=== PATIENT | male | born 1975 | race Caucasian/White ===

== ENCOUNTER → 2021-01-15 | Outpatient (CLI) | payer BC | LOC: ORTHO 13:29 | PROVIDERS: ATTEND Orthopaedic Surgery | DX: S83.242A Other tear of medial meniscus, current injury, left knee, initial encounter (principal); X58.XXXA Exposure to other specified factors, initial encounter | CPT/HCPCS: 99203 ==

== ENCOUNTER 2021-01-24 05:41 | Outpatient (CLI) | payer BC ==
[~2021-01-24] VITALS: Ht 175.3 cm; Wt 135.6 kg
[2021-01-24] MEDS ORDERED: IBUP-1779 PO (13:41)
[2021-01-24] MEDS ORDERED: SEMA1PEN SQ (13:41)
[2021-01-24] MEDS ORDERED: ACET-2267 PO (13:41)
[2021-01-24] MEDS ORDERED: OMEP20TA33 PO (13:41)
== END 2021-01-24 14:08 | disposition home or self-care (01) ==
LOC: PREOP 05:41
PROVIDERS: ATTEND Orthopaedic Surgery
DX: Z01.818 Encounter for other preprocedural examination (principal)

== ENCOUNTER 2021-02-01 07:14 | Day surgery (SDC) | payer BC ==
[2021-02-01] VITALS (11 sets, daily range): BP systolic 111–143; BP diastolic 69–97
[~2021-02-01] VITALS: Ht 175.3 cm; Wt 135.6 kg
[~2021-02-01 07:14] MED LIST: ACET-2267 PO; IBUP-1779 PO; OMEP20TA33 PO; SEMA1PEN SQ
[2021-02-01] MEDS ORDERED: ceFAZolin 2 GM IV Premixed 50 ML IV ONE (07:45)
[2021-02-01] MEDS ORDERED: LACTATED RINGERS 1,000 ML IV PRN (07:45)
[2021-02-01] MEDS ORDERED: LIDOCAINE/EPI 1%-1:100,000 (XYLOCAINE) 20ML ONE (08:09)
[2021-02-01] MEDS ORDERED: BUPIVACAINE 0.25% 30 ML (SENSORCAINE) VIAL ONE (08:09)
[2021-02-01] MEDS ORDERED: proPOfol 200 MG/20 ML (DIPRIVAN) VIAL IV ONE (08:11)
[2021-02-01] MEDS ORDERED: SEVOFLURANE (ULTANE) 15 ML INHAL SOLN ONE (08:11)
[2021-02-01] MEDS ORDERED: fentaNYL INJ 100 MCG/2 ML AMP ONE (08:11)
[2021-02-01] MEDS ORDERED: LIDOCAINE PF 2% 5 ML (XYLOCAINE) VIAL ONE (08:11)
[2021-02-01] MEDS ORDERED: ONDANSETRON 4 MG/2 ML (SDV) Z0FRAN ONE (08:11)
[2021-02-01] MEDS ORDERED: MIDAZOLAM 2 MG/2 ML (VERSED) VIAL ONE (08:13)
[2021-02-01] MEDS ORDERED: KETOROLAC 30 MG/ML VIAL ONE (10:05)
[2021-02-01] MEDS ORDERED: GLYCOPYRROLATE 0.2 MG/ML (ROBINUL) 2 ML VIAL ONE (10:17)
[2021-02-01] MEDS ORDERED: OXYC5TAB PO (10:33)
--- NOTE | 2021-02-01 10:40 | Operative Report - Ortho ---
Operative Report Surgeon (s)/Director Of Content And Programming (s) Surgeon CRUZ MCDERMOTT MD Director Of Content And Programming n/a Pre-Operative Diagnosis Left Knee Medial Meniscus Tear Post-Operative Diagnosis same Operative Report Date of Procedure: Feb 01, 2021 Name of Procedure Performed: Left Knee Arthroscopy with Partial Medial Meniscectomy Description & Findings After obtaining informed consent and marking the patient in the preoperative holding area, the patient was administered IV antibiotics and taken to the operating room. General anesthesia was induced. The right lower extremity was placed in the well leg dolan and the left leg was placed in the arthroscopic dolan. Surgical timeout was taken. The left lower extremity was prepped and draped in the usual sterile fashion. An anterolateral portal was established and a diagnostic knee arthroscopy was performed with the following findings: the patellofemoral portion of the joint demonstrated grade II change, the patella tracked well through the trochlear groove, there was a medial plica hooding the medial femoral condyle, the gutters were free of loose bodies, there was a medial meniscus tear at the junction of the body and the posterior horn, grade II change in the medial compartment, ACL was intact, lateral compartment with intact meniscus and articular cartilage. An anteromedial portal was established. Probe was inserted and the meniscal tear was explored. Shaver was inserted and the meniscal tear was debrided to a stable border. Probe was reinserted and confirmed that the mensicectomy was stable. The shaver was then taken into the suprapatellar pouch. The medial plica was debrided back to the edge of the synovial lining. Instruments were withdrawn. Wounds were closed with 3-0 nylon and dressed with xeroform, 4x4s, ABD, cast padding, and ELISHA wrap. Patient tolerated the procedure well and was stable to the recovery room. Anesthesia Type General Estimated Blood Loss 15 mL Specimen(s) collected/removed None CRUZ MCDERMOTT MD Feb 01, 2021 10:40
[2021-02-01] MEDS ORDERED: ONDANSETRON 4 MG/2 ML (SDV) Z0FRAN IVP PRN (10:45)
[2021-02-01] MEDS ORDERED: HYDROmorphone 2 MG/ML VIAL (DILAUDID) IV ONE (10:45)
[2021-02-01] MEDS ORDERED: HYDROmorphone 2 MG/ML VIAL (DILAUDID) ONE (10:55)
--- NOTE | 2021-02-01 15:06 | Anesthesia-General Post-Op ---
General Patient Condition Mental Status/LOC: Same as Preop Cardiovascular: Satisfactory Nausea/Vomiting: Absent Respiratory: Satisfactory Pain: Controlled Complications: Absent Post Op Complications Complications None Follow Up Care/Instructions Patient Instructions None needed. Anesthesia/Patient Condition Patient Condition Patient is doing well, no complaints, stable vital signs, no apparent adverse anesthesia problems. No complications reported per nursing. D/C home per [facility] Criteria: Yes LYNETTE CARBAJAL CRNA Feb 01, 2021 15:06
== END 2021-02-01 12:45 | disposition home or self-care (01) ==
LOC: SDC 07:14
PROVIDERS: ATTEND Orthopaedic Surgery
DX: S83.232A Complex tear of medial meniscus, current injury, left knee, initial encounter (principal); K21.9 Gastro-esophageal reflux disease without esophagitis; E11.9 Type 2 diabetes mellitus without complications; G47.33 Obstructive sleep apnea (adult) (pediatric); E66.01 Morbid (severe) obesity due to excess calories; M19.90 Unspecified osteoarthritis, unspecified site; E78.00 Pure hypercholesterolemia, unspecified; M10.9 Gout, unspecified; Z79.899 Other long term (current) drug therapy; Z79.1 Long term (current) use of non-steroidal anti-inflammatories (NSAID); Z68.41 Body mass index [BMI] 40.0-44.9, adult; Z87.891 Personal history of nicotine dependence
CPT/HCPCS: 82947; 87081

== ENCOUNTER → 2021-02-12 | Outpatient (CLI) | payer BC ==
[~2021-02-12] MED LIST changes: +OXYC5TAB PO
== END ==
LOC: ORTHO 09:20
PROVIDERS: ATTEND Orthopaedic Surgery
DX: Z47.89 Encounter for other orthopedic aftercare (principal); Z98.890 Other specified postprocedural states

== ENCOUNTER → 2021-03-12 | Outpatient (CLI) | payer BC | LOC: ORTHO 10:23 | PROVIDERS: ATTEND Orthopaedic Surgery | DX: Z47.89 Encounter for other orthopedic aftercare (principal); Z98.890 Other specified postprocedural states; Z96.652 Presence of left artificial knee joint ==

== ENCOUNTER → 2021-04-23 | Outpatient (CLI) | payer BC | LOC: ORTHO 08:18 | PROVIDERS: ATTEND Orthopaedic Surgery | DX: Z47.89 Encounter for other orthopedic aftercare (principal); E78.00 Pure hypercholesterolemia, unspecified ==

== ENCOUNTER → 2021-05-21 | Outpatient (CLI) | payer BC | LOC: ORTHO 13:02 | PROVIDERS: ATTEND Orthopaedic Surgery | DX: Z47.89 Encounter for other orthopedic aftercare (principal); Z98.890 Other specified postprocedural states | CPT/HCPCS: 99213 ==